=== PATIENT | male | born 1980 | race African-American/Black ===

== ENCOUNTER 2017-11-15 15:29 | Emergency (ER) | payer MEDICAID ==
[~2017-11-15] VITALS: Ht 180.3 cm; Wt 103.0 kg
[2017-11-15 15:35] VITALS: BP 122/74
[2017-11-15] MEDS ORDERED: KETOROLAC TROMETH 60MG/2ML VIAL IM ONE (17:00)
== END 2017-11-15 17:19 | disposition home or self-care (01) ==
LOC: ER 15:34
DX: S91.132A Puncture wound without foreign body of left great toe without damage to nail, initial encounter (principal); Z88.0 Allergy status to penicillin; M10.072 Idiopathic gout, left ankle and foot; F17.210 Nicotine dependence, cigarettes, uncomplicated; W50.0XXA Accidental hit or strike by another person, initial encounter; Y93.89 Activity, other specified; Y99.8 Other external cause status; Y92.89 Other specified places as the place of occurrence of the external cause
CPT/HCPCS: 73630; 96372; 99284; J1885